=== PATIENT | female | born 1985 | race Caucasian/White ===

== ENCOUNTER 2017-12-09 14:51 | Outpatient (CLI) | payer OTHER | END 2017-12-09 14:52 | disposition home or self-care (01) | LOC: BICRAD 14:51 | PROVIDERS: ATTEND Family Medicine | DX: M54.16 Radiculopathy, lumbar region (principal); M54.9 Dorsalgia, unspecified | CPT/HCPCS: 71046; 72100 ==

== ENCOUNTER 2019-01-09 21:58 | Inpatient (IN) | payer OTHER ==
[2019-01-09] MEDS ORDERED: Lidocaine 1% (PF) 30 ML VIAL SC PRN (22:28)
[2019-01-09] MEDS ORDERED: Acetaminophen 500 MG TAB PO PRN (22:28)
[2019-01-09] MEDS ORDERED: Promethazine HCl 25 MG/ML VIAL IM PRN (22:28)
[2019-01-09] MEDS ORDERED: NS / Oxytocin 40 units/1000ml 1,000 ML IV PRN (22:28)
[2019-01-09] MEDS ORDERED: Butorphanol Tartrate 1 MG/ML VIAL SLOW IVP PRN (22:28)
[2019-01-09] MEDS ORDERED: Ibuprofen 800 MG TAB PO PRN (22:28)
[2019-01-09] MEDS ORDERED: Diphenoxylate HCl/Atropine Tablet PO PRN ×2 (22:28)
[2019-01-09] MEDS ORDERED: Docusate 100 MG CAP PO PRN (22:28)
[2019-01-09] MEDS ORDERED: Misoprostol 200 MCG TAB PR PRN (22:28)
[2019-01-09] MEDS ORDERED: HYDROcodone/Acetaminophen 5/325 mg Tablet PO PRN ×2 (22:28)
[2019-01-09] MEDS ORDERED: Zolpidem Tartrate 5 MG TAB PO PRN (22:28)
[2019-01-09] MEDS ORDERED: NS w/ Oxytocin 10 units 500 ML IV SCH (22:28)
[2019-01-09] MEDS ORDERED: Ondansetron PF 4 MG/2 ML Vial IVP PRN (22:28)
[2019-01-09 22:34] VITALS: BMI 30.7
[2019-01-09 23:40] LABS: Hemoglobin 14.9 g/dL (12.0-16.0); Mean Corpuscular HGB CONC 33.5 g/dL (32.0-36.0); Mean Corpuscular Hemoglobin 28.7 pg (27.0-31.0); Mean Corpuscular Volume 85.9 fL (78.0-98.0); Platelet Count 182 thou/uL (130-400); RBC Distribution Width 15.5 % (11.5-14.5); Red Blood Cell (RBC) Count 5.19 mill/uL (4.20-5.40); White Blood Cell (WBC) Count 5.7 thou/uL (4.8-10.8)
[2019-01-09] MEDS: Misoprostol 100 MCG TAB VAG SCH (23:45)
[2019-01-09] MEDS: Lactated Ringer's 1,000 ML IV SCH (23:56)
[2019-01-10 00:18] LABS: Syphilis Antibody Nonreactive (Nonreactive); Syphilis Antibody Index 0.03 S/CO (<1.00 Non-Reactive)
[2019-01-10 01:48] LABS: Hep B Surf Ag NonReactive S/CO (NonReactive)
[2019-01-10 01:49] LABS: HBSAg Index 0.36 S/CO (0-0.99)
[2019-01-10] MEDS: Misoprostol 100 MCG TAB VAG SCH ×3 (04:00→18:27)
[2019-01-10] MEDS: Lactated Ringer's 1,000 ML IV SCH ×2 (06:43→10:05)
[2019-01-10] MEDS ORDERED: Fentanyl 4 mcg/Bup 0.1% Cadd 100 ML ONE (08:08)
[2019-01-10] MEDS ORDERED: Lidocaine 1.5%/Epinephrine 1:200,000 5 ML AMPUL IJ ONE (08:27)
[2019-01-10] MEDS ORDERED: Ondansetron PF 4 MG/2 ML Vial IVP PRN ×2 (09:25→14:53)
[2019-01-10] MEDS ORDERED: diphenhydrAMINE 50 MG/ML VIAL IVP PRN (09:25)
[2019-01-10] MEDS ORDERED: Eucerin (Mineral Oil/Petrolatum,White) 30 gm Jar TOP PRN (09:25)
[2019-01-10] MEDS ORDERED: ePHEDrine/0.9% NaCl/PF SYRINGE 50 mg/10 ml SLOW IVP PRN (09:25)
[2019-01-10] MEDS ORDERED: Promethazine HCl 25 MG/ML VIAL IM PRN (09:25)
[2019-01-10] MEDS ORDERED: Acetaminophen 325 MG TAB PO PRN (09:25)
[2019-01-10] MEDS ORDERED: Lactated Ringer's 500 ML IV PRN (09:25)
[2019-01-10] MEDS ORDERED: Naloxone HCl 0.4 mg/ml Vial IVP PRN ×2 (09:25)
[2019-01-10] MEDS ORDERED: Fentanyl 4 mcg/Bupivacaine 0.1% Cassette 100 ML EPIDURAL SCH (09:30)
[2019-01-10] MEDS ORDERED: Communication Order-Pharmacy FS SCH (09:30)
[2019-01-10] MEDS ORDERED: Bupivacaine 0.25% HCL 30 ML VIAL ONE (11:11)
[2019-01-10] MEDS ORDERED: Sodium Chloride 0.9% (PF) 10 ML VIAL ONE (11:11)
[2019-01-10] MEDS ORDERED: diphenhydrAMINE 25 MG CAP PO PRN (14:53)
[2019-01-10] MEDS ORDERED: Acetaminophen/Codeine 30-300mg Tablet PO PRN ×2 (14:53)
[2019-01-10] MEDS ORDERED: Lanolin Ointment 7 GM TUBE TOP PRN (14:53)
[2019-01-10] MEDS ORDERED: Milk Of Magnesia 30 ML UDCUP PO PRN (14:53)
[2019-01-10] MEDS ORDERED: Bisacodyl 10 MG SUPP PR PRN (14:53)
[2019-01-10] MEDS ORDERED: Zolpidem Tartrate 5 MG TAB PO PRN (14:53)
[2019-01-10] MEDS ORDERED: Adacel (T-DAP) 0.5 ML SYRINGE IM ONE (14:53)
[2019-01-10] MEDS: NS / Oxytocin 40 units/1000ml 1,000 ML IV SCH ×2 (16:01→21:03)
[2019-01-10] MEDS: Ferrous Sulfate 325 MG TAB PO SCH (18:26)
[2019-01-10] MEDS: Ibuprofen 800 MG TAB PO SCH (21:04)
[2019-01-10] MEDS: Docusate Calcium (SURFAK) 240 MG CAP PO SCH (21:04)
[2019-01-11] MEDS: Ibuprofen 800 MG TAB PO SCH ×3 (04:44→21:50)
[2019-01-11 05:37] LABS: Hemoglobin 10.2 g/dL (12.0-16.0); Mean Corpuscular HGB CONC 33.6 g/dL (32.0-36.0); Mean Corpuscular Hemoglobin 29.2 pg (27.0-31.0); Mean Corpuscular Volume 86.9 fL (78.0-98.0); Mean Platelet Volume 6.7 fL (7.4-10.4); Platelet Count 179 thou/uL (130-400); Red Blood Cell (RBC) Count 3.48 mill/uL (4.20-5.40); White Blood Cell (WBC) Count 11.6 thou/uL (4.8-10.8)
[2019-01-11] MEDS: Ferrous Sulfate 325 MG TAB PO SCH ×2 (09:38→17:45)
[2019-01-11] MEDS: Prenatal Vitamin 1 TAB PO SCH (10:36)
[2019-01-11] MEDS: Docusate Calcium (SURFAK) 240 MG CAP PO SCH ×2 (10:36→21:50)
[2019-01-12] MEDS: Ibuprofen 800 MG TAB PO SCH ×2 (05:38→14:27)
[2019-01-12 08:00] VITALS: BP 110/67; TEMP 97.7
[2019-01-12] MEDS: Docusate Calcium (SURFAK) 240 MG CAP PO SCH (09:11)
[2019-01-12] MEDS: Ferrous Sulfate 325 MG TAB PO SCH ×2 (09:11→16:13)
[2019-01-12] MEDS: Prenatal Vitamin 1 TAB PO SCH (09:11)
== END 2019-01-12 17:20 | disposition home or self-care (01) | DRG 807 ==
LOC: L&D 21:58 → 3SW 01-10 17:30
PROVIDERS: ADMIT Obstetrics & Gynecology; ATTEND Obstetrics & Gynecology
PROC: 10E0XZZ Delivery of Products of Conception, External Approach (ICD-10-PCS; principal; 2019-01-10)
PROC: 10907ZC Drainage of Amniotic Fluid, Therapeutic from Products of Conception, Via Natural or Artificial Opening (ICD-10-PCS; 2019-01-10)
PROC: 3E0P7VZ Introduction of Hormone into Female Reproductive, Via Natural or Artificial Opening (ICD-10-PCS; 2019-01-10)
DX: O69.81X0 Labor and delivery complicated by cord around neck, without compression, not applicable or unspecified (principal); Z37.0 Single live birth; Z3A.39 39 weeks gestation of pregnancy
CPT/HCPCS: 36415; 51702; 85027; 86780; 86850; 86900; 86901; 87340; J2001; J2590; J3490; S0020